=== PATIENT | male | born 1985 | race Two or more races ===

== ENCOUNTER 2018-08-18 12:59 | Emergency (ER) | payer SELFPAY ==
[~2018-08-18] VITALS: Ht 167.6 cm; Wt 75.0 kg
[2018-08-18] MEDS ORDERED: SODIUM CHLORIDE 0.9% 1,000 ML IV ONE (13:08)
[2018-08-18] MEDS ORDERED: ONDANSETRON HCL 4MG/2ML INJ IV STA (13:08)
[2018-08-18] MEDS ORDERED: MORPHINE SULFATE 4 MG/ML CPJ (NOT FOR IM USE) IV STA (13:08)
[2018-08-18] MEDS ORDERED: CEFAZOLIN 1000MG PREMIX 50 ML IV ONE (13:15)
[2018-08-18] MEDS ORDERED: TETANUS, DIPHTHERIA, PERTUSSIS VAC/PF 0.5ML (>7YR OLD) IM ONE (13:15)
[2018-08-18] MEDS ORDERED: LIDOCAINE HCL/PF 1% 10 MG/ML 5ML VIAL IJ ONE (13:15)
[2018-08-18 14:00] LABS: CHLORIDE 107 mEq/L (98-107)
[2018-08-18 14:02] LABS: BASOPHILS % 0.4 % (0.0-2.0); EOSINOPHILS % 1.3 % (0.0-5.0); HEMATOCRIT. 35.3 % (42.0-52.0); HEMOGLOBIN. 11.8 g/dL (14.0-18.0); MEAN CORPUSCULAR HEMOGLOBIN 31.3 pg (28.0-32.0); MEAN CORPUSCULAR VOLUME 93.2 fL (80.0-94.0); MEAN PLATELET VOLUME 7.1 fl (7.4-10.4); MONOCYTES % 8.4 % (2.0-8.0); NEUTROPHILS % 65.9 % (40.0-76.0); PLATELET 313 x1000/uL (130-400); RED BLOOD CELL COUNT 3.78 mill/uL (4.7-6.1)
[2018-08-18 14:03] LABS: PARTIAL THROMBOPLASTIN TIME 32.2 sec (23.4-31.0)
[2018-08-18 15:11] VITALS: BP 116/74
== END 2018-08-18 15:28 | disposition short-term general hospital (02) ==
LOC: ER 13:13
DX: S66.922A Laceration of unspecified muscle, fascia and tendon at wrist and hand level, left hand, initial encounter (principal); S65.912A Laceration of unspecified blood vessel at wrist and hand level of left arm, initial encounter; S61.432A Puncture wound without foreign body of left hand, initial encounter; E86.0 Dehydration; V18.0XXA Pedal cycle driver injured in noncollision transport accident in nontraffic accident, initial encounter; Y93.55 Activity, bike riding; Y92.89 Other specified places as the place of occurrence of the external cause; Z23 Encounter for immunization
CPT/HCPCS: 12002; 36415; 73130; 80048; 85025; 85610; 85730; 86850; 86900; 86901; 90471; 90715; 96365; 96375; 99291; J0690; J2270; J2405; J3490; J7030; Z7610